=== PATIENT | female | born 1975 | race American Indian/Alaskan Native ===

== ENCOUNTER 2018-03-29 23:04 | Emergency (ER) | payer OTHER ==
[2018-03-30 03:00] LABS: Basophils % (Auto) 0.3 % (0.0-1.8); Eosinophils % (Auto) 0.8 % (0.0-4.3); Hemoglobin 9.8 gm/dl (10.1-14.3); Lymphocytes # (Auto) 1.6 K/mm3 (1.2-5.4); Lymphocytes % (Auto) 36.1 % (13.4-35.0); Mean Corpuscular HGB Conc 32 % (30-34); Mean Corpuscular Volume 75 fl (79-97); Monocytes # (Auto) 0.6 K/mm3 (0.0-0.8); Monocytes % (Auto) 13.4 % (0.0-7.3); Platelet Count 249 K/mm3 (140-440); Red Blood Count 4.13 M/mm3 (3.65-5.03); Red Cell Distribution Width 18.4 % (13.2-15.2)
[2018-03-30 03:07] LABS: Mean Corpuscular Hemoglobin 24 pg (28-32)
[2018-03-30 03:21] LABS: Alanine Aminotransferase 16 units/L (7-56); Albumin 4.3 g/dL (3.9-5); BUN/Creatinine Ratio 20; Blood Urea Nitrogen 14 mg/dL (7-17); Calcium 9.2 mg/dL (8.4-10.2); Hemolysis Index 0
[2018-03-30] MEDS ORDERED: LOVENOX SUB-Q STA (04:08)
[2018-03-30 04:24] VITALS: BP 117/68
--- NOTE | 2018-03-30 04:45 | Emergency Department Report ---
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 She reports pain worsening with ambulation and crampy, throbbing fashion. No chest pain, palpitations, fever, chills, sweats, nausea, vomiting -: Gradual Location: lower extremity Radiation: non-radiation Improves with: immobilization Worsens with: movement Associated Symptoms: denies: chest pain, cough, diaphoresis, fever/chills, loss of appetite, malaise, nausea/vomiting, shortness of breath, syncope, weakness Treatments Prior to Arrival: none - Related Data Allergies Allergy/AdvReac Type Severity Reaction Status Date / Time aspirin Allergy Hives Verified 03/29/18 23:37 ED Review of Systems ROS: Stated complaint: BILATERAL LEG CRAMPS Other details as noted in HPI Constitutional: denies: chills, fever Eyes: denies: eye pain, eye discharge, vision change ENT: denies: ear pain, throat pain Respiratory: denies: cough, shortness of breath, wheezing Cardiovascular: denies: chest pain, palpitations Endocrine: no symptoms reported Gastrointestinal: denies: abdominal pain, nausea, diarrhea Genitourinary: denies: urgency, dysuria, discharge Musculoskeletal: myalgia. denies: back pain, joint swelling, arthralgia Skin: denies: rash, lesions Neurological: denies: headache, weakness, paresthesias Psychiatric: denies: anxiety, depression Hematological/Lymphatic: denies: easy bleeding, easy bruising ED Past Medical Hx - Past Medical History Previous Medical History?: Yes Hx Hypertension: Yes Hx Psychiatric Treatment: Yes (Anxiety) Additional medical history: Anemia - Surgical History Past Surgical History?: Yes Additional Surgical History: rt shoulder - Social History Smoking Status: Never Smoker Substance Use Type: None ED Physical Exam - General Limitations: No Limitations General appearance: alert, in no apparent distress - Head Head exam: Present: atraumatic, normocephalic - Eye Eye exam: Present: normal appearance - ENT ENT exam: Present: mucous membranes moist - Neck Neck exam: Present: normal inspection - Respiratory Respiratory exam: Present: normal lung sounds bilaterally. Absent: respiratory distress - Cardiovascular Cardiovascular Exam: Present: regular rate, normal rhythm. Absent: systolic murmur, diastolic murmur, rubs, gallop - GI/Abdominal GI/Abdominal exam: Present: soft, normal bowel sounds - Extremities Exam Extremities exam: Present: normal inspection, normal capillary refill, calf tenderness (pain to Palpation. No cords time. Homans sign is positive bilaterally. No popliteal masses. No cellulitis or lymphangitis is appreciated ) - Back Exam Back exam: Present: normal inspection - Neurological Exam Neurological exam: Present: alert, oriented X3 - Psychiatric Psychiatric exam: Present: normal affect, normal mood - Skin Skin exam: Present: warm, dry, intact, normal color. Absent: rash ED Course Vital Signs 03/29/18 03/30/18 23:50 04:23 Temperature 99.2 F 98.8 F Pulse Rate 100 H 81 Respiratory 16 18 Rate Blood Pressure 123/78 Blood Pressure 117/68 [Left] O2 Sat by Pulse 99 99 Oximetry ED Medical Decision Making - Lab Data Result diagrams: 03/30/18 02:49 03/30/18 02:49 - Medical Decision Making Elevated d-dimer. Plan to obtain ultrasound tomorrow requisition was provided to the patient. She was also started on Lovenox and will follow-up post results of a bilateral venous Doppler Critical care attestation.: If time is entered above; I have spent that time in minutes in the direct care of this critically ill patient, excluding procedure time. ED Disposition Clinical Impression: Bilateral calf pain Disposition: DC-01 TO HOME OR SELFCARE Is pt being admited?: No Does the pt Need Aspirin: No Condition: Stable Instructions: Deep Venous Thrombosis (ED) Referrals: [facility] [Provider Group] - 03/30/18 8:30 am
== END 2018-03-30 04:23 | disposition home or self-care (01) ==
LOC: ED 23:04
DX: M79.661 Pain in right lower leg (principal); M79.662 Pain in left lower leg; I10 Essential (primary) hypertension; F41.9 Anxiety disorder, unspecified; Z88.6 Allergy status to analgesic agent; Z86.2 Personal history of diseases of the blood and blood-forming organs and certain disorders involving the immune mechanism
CPT/HCPCS: 36415; 80053; 85025; 85379; 96372; J1650; 99283

== ENCOUNTER 2018-10-12 23:33 | Emergency (ER) | payer OTHER ==
[2018-10-13] MEDS ORDERED: NACL 0.9% 1000 ML 1,000 ML IV ONE (00:04)
[2018-10-13] MEDS ORDERED: ZOFRAN IV ONE (00:43)
[2018-10-13] MEDS ORDERED: MORPHINE IV ONE (00:43)
--- NOTE | 2018-10-13 00:59 | Emergency Department Report ---
HPI - General Chief Complaint: Pain General Time Seen by Provider: 10/13/18 00:24 - HPI HPI: 43-year-old -Malagasy female presents to the emergency department with complaint of a one-week history of subjective fever, chills, generalized body aches, diarrhea and some back pain that she says is from her known herniated disks. She went to see her primary care physician a few days ago and was placed on a 3 day course of Cipro and Flagyl, and she was given some Zofran, without any relief. No recent travel or sick contacts at home. She has a past medical history of hypertension, anxiety, anemia and herniated disks. ED Past Medical Hx - Past Medical History Previous Medical History?: Yes Hx Hypertension: Yes Hx Psychiatric Treatment: Yes (Anxiety) Additional medical history: Anemia, Herniated C5, C6 - Surgical History Past Surgical History?: Yes Additional Surgical History: rt shoulder - Social History Smoking Status: Never Smoker Substance Use Type: None - Medications Home Medications: Home Medications Medication Instructions Recorded Confirmed Last Taken Type Ondansetron [Zofran Odt] 4 mg PO Q8HR PRN #15 tab.rapdis 10/13/18 Unknown Rx ED Review of Systems ROS: Stated complaint: FEVER/CHILLS MUSCLE ACHES Other details as noted in HPI Comment: All other systems reviewed and negative Constitutional: chills, fever (subjective) Eyes: denies: eye pain, vision change ENT: denies: ear pain, throat pain Respiratory: denies: cough, shortness of breath Cardiovascular: denies: chest pain, palpitations Gastrointestinal: diarrhea. denies: vomiting Genitourinary: denies: dysuria, discharge Musculoskeletal: back pain, myalgia. denies: joint swelling Skin: denies: rash, lesions Neurological: denies: headache, weakness, numbness Physical Exam - Physical Exam Vital Signs: Vital Signs 10/12/18 23:56 Temperature 99.6 F Pulse Rate 118 H Respiratory 20 Rate Blood Pressure 103/73 O2 Sat by Pulse 99 Oximetry Physical Exam: GENERAL: The patient is well-developed well-nourished. HEENT: Normocephalic. Atraumatic. Patient has moist mucous membranes. EYES: Extraocular motions are intact. Pupils are equal and reactive to light bilaterally. NECK: Supple. Trachea is midline. CHEST/LUNGS: Clear to auscultation. There is no respiratory distress noted. HEART/CARDIOVASCULAR: Regular. There is mild tachycardia. There is no obvious murmur. ABDOMEN: Abdomen is soft, nontender. Patient has hyperactive bowel sounds. There is no abdominal distention. SKIN: Skin is warm and dry. NEURO: The patient is awake, alert, and oriented. The patient is cooperative. The patient has no focal neurologic deficits. The patient has normal speech. MUSCULOSKELETAL: There is no tenderness or deformity. There is no limitation range of motion. There is no evidence of acute injury. ED Course Vital Signs 10/12/18 23:56 Temperature 99.6 F Pulse Rate 118 H Respiratory 20 Rate Blood Pressure 103/73 O2 Sat by Pulse 99 Oximetry ED Medical Decision Making - Lab Data Result diagrams: 10/13/18 00:56 10/13/18 00:56 - Radiology Data Radiology results: image reviewed interpreted by me: Abdominal X-ray shows nonspecific non-obstructive bowel gas. No acute process. - Medical Decision Making Patient presents to the emergency department with a one-week history of some nausea and vomiting, diarrhea, subjective fever with chills and body aches. She has known chronic back pain and herniated disks that she says is also being exacerbated. Patient's labs have been unremarkable including a CBC, CMP, lipase and urinalysis. She was given IV fluid resuscitation, Zofran for nausea and a dose of pain medication. She was reevaluated multiple times almost more hours and is both feeling and appearing improved. Vital signs stable throughout her ED course including being afebrile. The patient was able to pass an oral challenge. Abdominal x-ray showed nonspecific nonobstructive bowel gas. Patient will be discharged home with a prescription for nausea medication. She's been instructed to return to the emergency Department with any worsening of her symptoms or with any acute distress. - Differential Diagnosis food poisoning, viral syndrome, colitis, gastritis Critical Care Time: No Critical care attestation.: If time is entered above; I have spent that time in minutes in the direct care of this critically ill patient, excluding procedure time. ED Disposition Clinical Impression: Viral syndrome Diarrhea Qualifiers: Diarrhea type: unspecified type Qualified Code(s): R19.7 - Diarrhea, unspecified Nausea & vomiting Qualifiers: Vomiting type: unspecified Vomiting Intractability: non-intractable Qualified Code(s): R11.2 - Nausea with vomiting, unspecified Disposition: DC-01 TO HOME OR SELFCARE Is pt being admited?: No Condition: Stable Instructions: Acute Nausea and Vomiting (ED), Acute Diarrhea (ED), Viral Syndrome (ED) Additional Instructions: Please follow up with a primary care physician in the next few days. Increase your oral rehydration. Return to the emergency Department with any worsening of your symptoms or any acute distress. Prescriptions: Ondansetron [Zofran Odt] 4 mg PO Q8HR PRN #15 tab.rapdis PRN Reason: Nausea Referrals: Primary Care Provider, Your [Other] - 2-3 Days Forms: Work/School Release Form(ED) Time of Disposition: 03:35
[2018-10-13 01:30] LABS: Hematocrit 31.9 % (30.3-42.9); Hemoglobin 10.4 gm/dl (10.1-14.3); Mean Corpuscular HGB Conc 33 % (30-34); Mean Corpuscular Volume 78 fl (79-97); Platelet Count 256 K/mm3 (140-440); Red Cell Distribution Width 18.1 % (13.2-15.2)
[2018-10-13 01:35] LABS: Alanine Aminotransferase 31 units/L (7-56); Albumin 3.9 g/dL (3.9-5); BUN/Creatinine Ratio 8; Blood Urea Nitrogen 8 mg/dL (7-17); Calcium 8.6 mg/dL (8.4-10.2); Hemolysis Index 1
--- NOTE | 2018-10-13 02:13 | XRay Report ---
PROCEDURE: XR ABDOMEN 2V TECHNIQUE: Supine and upright views of the abdomen were obtained. HISTORY: abd pain COMPARISONS: None FINDINGS: The bowel gas pattern is unremarkable. Free air is not seen. There are multiple calcifications in the pelvis. The bones and soft tissues do not show any acute changes. IMPRESSION: No acute process identified. This document is electronically signed by Jose Blanco MD., October 13 2018 02:11:27 AM ET
[2018-10-13 03:30] LABS: Bilirubin,Urine NEG (Negative); Blood,Urine SM (Negative); Color,Urine Yellow (Yellow); Hyaline Casts,Urine 13 /LPF; Mucus,Urine 1+ /HPF; Protein,Urine <15 mg/dL mg/dL (Negative); Urobilinogen,Urine < 2.0 mg/dL (<2.0)
[2018-10-13 03:47] VITALS: BP 107/71
[2018-10-13 05:16] LABS: Total Cells Counted 100
[2018-10-13 05:17] LABS: Anisocytosis 1+; Band Neutrophils # (Manual) 0.2 K/mm3; Basophils % (Manual) 0 % (0.0-1.8); Eosinophils % (Manual) 0 % (0.0-4.3)
== END 2018-10-13 03:55 | disposition home or self-care (01) ==
LOC: ED 23:33
DX: B34.9 Viral infection, unspecified (principal); I10 Essential (primary) hypertension; F41.9 Anxiety disorder, unspecified; D64.9 Anemia, unspecified; Z88.6 Allergy status to analgesic agent
CPT/HCPCS: 36415; 74019; 80053; 81001; 83690; 84703; 85007; 85025; 96361; 96374; 96375; 99284; J2270; J2405; J7030

== ENCOUNTER 2020-03-19 08:48 | Emergency (ER) | payer OTHER ==
[2020-03-19 10:30] LABS: Bilirubin,Urine NEG (Negative); Blood,Urine LG (Negative); Color,Urine Yellow (Yellow); Mucus,Urine 1+ /HPF; Protein,Urine <15 mg/dL mg/dL (Negative); Urobilinogen,Urine < 2.0 mg/dL (<2.0)
[2020-03-19] MEDS ORDERED: SODIUM CHLORIDE 0.9% 1000 ML 1,000 ML IV ONE (10:30)
[2020-03-19] MEDS ORDERED: ONDANSETRON 4 MG/2 ML INJ IV ONE (10:30)
[2020-03-19] MEDS ORDERED: HYOSCYAMINE SUBL 0.125 MG TAB SL ONE (10:31)
[2020-03-19 10:41] LABS: HCG Qualitative,Urine Negative (Negative)
[2020-03-19 10:59] LABS: Basophils % (Auto) 0.5 % (0.0-1.8); Eosinophils % (Auto) 0.4 % (0.0-4.3); Hematocrit 33.5 % (30.3-42.9); Hemoglobin 11.1 gm/dl (10.1-14.3); Lymphocytes # (Auto) 0.8 K/mm3 (1.2-5.4); Lymphocytes % (Auto) 15.7 % (13.4-35.0); Mean Corpuscular HGB Conc 33 % (30-34); Mean Corpuscular Volume 85 fl (79-97); Monocytes # (Auto) 0.5 K/mm3 (0.0-0.8); Monocytes % (Auto) 9.4 % (0.0-7.3); Platelet Count 220 K/mm3 (140-440); Red Blood Count 3.96 M/mm3 (3.65-5.03); Red Cell Distribution Width 15.5 % (13.2-15.2)
[2020-03-19 11:08] LABS: Alanine Aminotransferase 9 units/L (7-56); Blood Urea Nitrogen 9 mg/dL (7-17); Calcium 9.2 mg/dL (8.4-10.2); Hemolysis Index 48
[2020-03-19 11:10] LABS: BUN/Creatinine Ratio 15; Bilirubin,Direct < 0.2 mg/dL (0-0.2)
--- NOTE | 2020-03-19 12:43 | Cat Scan Report ---
CT ABDOMEN AND PELVIS WITH CONTRAST HISTORY: Abdominal Pain COMPARISON: None. TECHNIQUE: Axial CT images were obtained through the abdomen and pelvis after 100 cc of Omnipaque 300 intravenously. Sagittal and coronal reformatted images. All CT scans at this location are performed using CT dose reduction for ALARA by means of automated exposure control. FINDINGS: CT ABDOMEN: Lung Bases: Clear. Liver: No significant abnormality. Biliary: No significant abnormality. Spleen: No significant abnormality. Unenlarged. Pancreas: No significant abnormality. Adrenals: No significant abnormality. Kidneys: No significant abnormality. Few scattered small left renal sinus cysts are noted Lymphatics: No lymphadenopathy. Vasculature: No significant abnormality. Bowel/Peritoneum: No significant abnormality. No free air. No free fluid. Normal appendix. CT PELVIS: : 2 or 3 nabothian cysts are noted in the cervix. 1.8 cm right ovarian cyst is identified. The uter us, left adnexa and bladder are unremarkable. There is trace pelvic ascites. Osseous Structures: No significant abnormality. Additional Findings: None IMPRESSION: No acute inflammatory process. 1.8 cm right ovarian cyst. Trace pelvic ascites. Signer Name: Dejuan Banda Jr, MD Signed: 03/19/2020 12:38 PM Workstation Name: [id number]
--- NOTE | 2020-03-19 13:19 | Emergency Department Report ---
ED Abdominal Pain HPI - General Chief Complaint: Abdominal Pain Stated Complaint: CHEST PAIN/THROAT/BODY PAIN Time Seen by Provider: 03/19/20 09:16 Source: patient Mode of arrival: Ambulatory Limitations: No Limitations - History of Present Illness Initial Comments: 45-year-old -[place] female presents emergency department complaining couple day history of abdominal pain radiates from the suprapubic region. No fevers chills or sweats no chest pain or palpitation no nausea vomiting MD Complaint: abdominal pain Location: suprapubic Radiation: none Migration to: suprapubic Quality: stabbing, dull Consistency: constant Improves With: nothing Worsens With: nothing Associated Symptoms: denies: nausea, constipation, dysuria, hematemesis, hematuria, syncope - Related Data Previous Rx's Medication Instructions Recorded Last Taken Type Ondansetron [Zofran Odt] 4 mg PO Q8HR PRN #15 tab.rapdis 10/13/18 Unknown Rx Ketorolac [Toradol] 10 mg PO Q6H PRN #14 tablet 03/19/20 Unknown Rx Allergies Allergy/AdvReac Type Severity Reaction Status Date / Time aspirin Allergy Hives Verified 10/13/18 00:56 ED Review of Systems ROS: Stated complaint: CHEST PAIN/THROAT/BODY PAIN Other details as noted in HPI Comment: All other systems reviewed and negative ED Past Medical Hx - Past Medical History Previous Medical History?: Yes Hx Hypertension: Yes Hx Psychiatric Treatment: Yes (Anxiety) Additional medical history: Anemia, Herniated C5, C6. right ovarian cyst. gastro? - Surgical History Past Surgical History?: Yes Additional Surgical History: rt shoulder - Social History Smoking Status: Never Smoker Substance Use Type: None - Medications Home Medications: Home Medications Medication Instructions Recorded Confirmed Last Taken Type Ondansetron [Zofran Odt] 4 mg PO Q8HR PRN #15 tab.rapdis 10/13/18 Unknown Rx Ketorolac [Toradol] 10 mg PO Q6H PRN #14 tablet 03/19/20 Unknown Rx ED Physical Exam - General Limitations: No Limitations General appearance: alert, in no apparent distress - Head Head exam: Present: atraumatic, normocephalic - Eye Eye exam: Present: normal appearance, PERRL, EOMI Pupils: Present: normal accommodation - ENT ENT exam: Present: normal exam, normal orophraynx, mucous membranes dry, mucous membranes moist - Neck Neck exam: Present: normal inspection, full ROM - Respiratory Respiratory exam: Present: normal lung sounds bilaterally. Absent: respiratory distress, wheezes, accessory muscle use, decreased breath sounds - Cardiovascular Cardiovascular Exam: Present: regular rate, normal rhythm. Absent: systolic murmur, diastolic murmur, rubs, gallop - GI/Abdominal GI/Abdominal exam: Present: soft, tenderness, normal bowel sounds, other (No Rovsing, no Walsh Lang no [place] sign). Absent: guarding, rebound, hypoactive bowel sounds, mass, bruit - Extremities Exam Extremities exam: Present: normal inspection, normal capillary refill - Back Exam Back exam: Present: normal inspection. Absent: CVA tenderness (R), CVA tenderness (L), muscle spasm - Neurological Exam Neurological exam: Present: alert, oriented X3, CN II-XII intact, normal gait - Psychiatric Psychiatric exam: Present: normal affect, normal mood - Skin Skin exam: Present: warm, dry, intact, normal color. Absent: rash ED Course Vital Signs 03/19/20 08:49 Temperature 99 F Pulse Rate 107 H Respiratory 18 Rate Blood Pressure 128/87 O2 Sat by Pulse 98 Oximetry ED Medical Decision Making - Lab Data Result diagrams: 03/19/20 10:45 03/19/20 10:45 - Radiology Data Radiology results: report reviewed Report Referring Physician:JOVI WHITTENPatient Name:HALLE MCKEONPatient ID:[id number] of :[id number]:FemaleAccession:[id number] Date:[id number] Status:Finalized Findings [address] [address] Cat Scan Report Signed Patient: HALLE MCKEON MR#: [id number] : 1975 Acct:[id number] Age/Sex: 45 / F ADM Date: 03/19/20 Loc: ED Attending Dr: Ordering Physician: SOLO KERR Date of Service: 03/19/20 Procedure(s): CT abdomen pelvis w con Accession Number(s): [id number] cc: SOLO KERR CT ABDOMEN AND PELVIS WITH CONTRAST HISTORY: Abdominal Pain COMPARISON: None. TECHNIQUE: Axial CT images were obtained through the abdomen and pelvis after 100 cc of Omnipaque 300 intravenously. Sagittal and coronal reformatted images. All CT scans at this location are perfo rmed using CT dose reduction for ALARA by means of automated exposure control. FINDINGS: CT ABDOMEN: Lung Bases: Clear. Liver: No significant abnormality. Biliary: No significant abnormality. Spleen: No significant abnormality. Unenlarged. Pancreas: No significant abnormality. Adrenals: No significant abnormality. Kidneys: No significant abnormality. Few scattered small left renal sinus cysts are noted Lymphatics: No lymphadenopathy. Vasculature: No significant abnormality. Bowel/Peritoneum: No significant abnormality. No free air. No free fluid. Normal appendix. CT PELVIS: : 2 or 3 nabothian cysts are noted in the cervix. 1.8 cm right ovarian cyst is identified. The uterus, left adnexa and bladder are unremarkable. There is trace pelvic ascites. Osseous Structures: No significant abnormality. Additional Findings: None IMPRESSION: No acute inflammatory process. 1.8 cm right ovarian cyst. Trace pelvic ascites. Signer Name: Dejuan Banda Jr, MD Signed: 03/19/2020 12:38 PM Workstation Name: [id number] Transcribed By: TTR Dictated By: DEJUAN BANDA JR, MD Electronically Authenticated By: DEJUAN BANDA JR, MD Signed Date/Time: 03/19/20 1238 DD/ 1235 TD/TT: - Medical Decision Making This patient presents with abdominal pain of unclear etiology possibly related to an ovarian cyst. A CT scan was performed to evaluate for potential causes of the abdominal pain, however, neither the clinical exam nor the CT has identified an emergent etiology for the abdominal pain. Specifically, given the benign exam, the laboratory studies, and unremarkable CT, I have a very low suspicion for appendicitis, ischemic bowel, bowel perforation, or any other life threatening disease. I have discussed with the patient the level of uncertainty with undifferentiated abdominal pain and clearly explained the need to follow-up as noted on the discharge instructions, or return to the Emergency Department immediately if the pain worsens, develops fever, persistent and uncontrollable vomiting, or for any new symptoms or concerns. Critical care attestation.: If time is entered above; I have spent that time in minutes in the direct care of this critically ill patient, excluding procedure time. ED Disposition Clinical Impression: Abdominal pain, Ovarian cyst Disposition: TO HOME OR SELFCARE Is pt being admited?: No Does the pt Need Aspirin: No Condition: Stable Instructions: Abdominal Pain (ED), Ovarian Cyst (ED) Prescriptions: Ketorolac [Toradol] 10 mg PO Q6H PRN #14 tablet PRN Reason: Pain Referrals: [facility] [Other] - 3-5 Days
[2020-03-19] MEDS ORDERED: KETOROLAC 30 MG/1 ML INJ ONE (13:38)
[2020-03-19] MEDS ORDERED: KETOROLAC 30 MG/1 ML INJ IV STA (13:41)
[2020-03-19 18:08] VITALS: BP 112/67
== END 2020-03-19 14:20 | disposition home or self-care (01) ==
LOC: ED 08:48
DX: N83.209 Unspecified ovarian cyst, unspecified side (principal); R10.2 Pelvic and perineal pain; I10 Essential (primary) hypertension; F41.9 Anxiety disorder, unspecified; Z98.890 Other specified postprocedural states; Z79.899 Other long term (current) drug therapy; Z88.6 Allergy status to analgesic agent
CPT/HCPCS: 36415; 74177; 80048; 80076; 81001; 81025; 83690; 85025; 93005; 96361; 96374; 96375; 99284; J1885; J2405; J7030; Q9967

== ENCOUNTER 2020-06-03 12:06 | Emergency (ER) | payer OTHER ==
--- NOTE | 2020-06-03 13:00 | XRay Report ---
CHEST 2 VIEWS INDICATION / CLINICAL INFORMATION: Chest Pain. COMPARISON: None available. FINDINGS: SUPPORT DEVICES: None. HEART / MEDIASTINUM: No significant abnormality. LUNGS / PLEURA: No significant pulmonary or pleural abnormality. No pneumothorax. ADDITIONAL FINDINGS: No significant additional findings. IMPRESSION: 1. No acute findings. Signer Name: Anjel Emmanuel MD Signed: 06/03/2020 12:54 PM Workstation Name: [id number]
[2020-06-03 13:25] LABS: Basophils % (Auto) 0.4 % (0.0-1.8); Eosinophils % (Auto) 1.4 % (0.0-4.3); Hematocrit 35.6 % (30.3-42.9); Hemoglobin 11.6 gm/dl (10.1-14.3); Mean Corpuscular HGB Conc 32 % (30-34); Mean Corpuscular Volume 80 fl (79-97); Monocytes # (Auto) 0.3 K/mm3 (0.0-0.8); Monocytes % (Auto) 11.4 % (0.0-7.3); Platelet Count 220 K/mm3 (140-440); Red Blood Count 4.46 M/mm3 (3.65-5.03); Red Cell Distribution Width 16.1 % (13.2-15.2)
[2020-06-03 13:37] LABS: Blood Urea Nitrogen 10 mg/dL (7-17); Calcium 9.6 mg/dL (8.4-10.2); Hemolysis Index 0
[2020-06-03 13:49] LABS: BUN/Creatinine Ratio 14
[2020-06-03] MEDS ORDERED: HYDROcodone/ACETAMINOPHEN 5-325 MG TAB PO ONE (19:29)
--- NOTE | 2020-06-03 19:32 | Emergency Department Report ---
ED General Adult HPI - General Chief complaint: Chest Pain Stated complaint: POSS COVID EXPOSURE PUI?: No Time Seen by Provider: 06/03/20 18:44 Source: patient Mode of arrival: Ambulatory Limitations: No Limitations - History of Present Illness Initial comments: Chief complaint: "I have all the symptoms of Covid 19." HPI: This is a 55-year-old female with history of hypertension, anxiety, anemia, cervical disc herniation, shoulder arthritis, ovarian cyst who presents with headache body aches cough sputum production chest pain since Monday 4 days ago. She was diagnosed with acute bronchitis after PCP evaluation on Monday. She was prescribed azithromycin and promethazine. She has persistent chest pain pressure radiating to the back exacerbated by cough. Subjective fever. Chills. She also has nausea vomiting diarrhea. She has had frequent contact with other people possible Covid exposure -: Gradual, days(s) (4) Location: head, chest Severity scale (0 -10): 5 Quality: aching Consistency: constant Improves with: none Worsens with: other (Cough) Associated Symptoms: cough, other (Sputum production body aches) - Related Data Previous Rx's Medication Instructions Recorded Last Taken Type Ondansetron [Zofran Odt] 4 mg PO Q8HR PRN #15 tab.rapdis 10/13/18 Unknown Rx Ketorolac [Toradol] 10 mg PO Q6H PRN #14 tablet 03/19/20 Unknown Rx HYDROcodone/APAP 5-325 [Renner 1 each PO Q6HR PRN #10 tablet 06/04/20 Unknown Rx 5/325] Allergies Allergy/AdvReac Type Severity Reaction Status Date / Time aspirin Allergy Hives Verified 10/13/18 00:56 ED Review of Systems ROS: Stated complaint: POSS COVID EXPOSURE Other details as noted in HPI Comment: All other systems reviewed and negative Constitutional: chills, fever, malaise Respiratory: cough Cardiovascular: chest pain Gastrointestinal: diarrhea ED Past Medical Hx - Past Medical History Previous Medical History?: Yes Hx Hypertension: Yes Hx Psychiatric Treatment: Yes (Anxiety) Additional medical history: Anemia, Herniated C5, C6. right ovarian cyst. dixie ro? - Surgical History Past Surgical History?: Yes Additional Surgical History: rt shoulder - Social History Smoking Status: Never Smoker Substance Use Type: None - Medications Home Medications: Home Medications Medication Instructions Recorded Confirmed Last Taken Type Ondansetron [Zofran Odt] 4 mg PO Q8HR PRN #15 tab.rapdis 10/13/18 Unknown Rx Ketorolac [Toradol] 10 mg PO Q6H PRN #14 tablet 03/19/20 Unknown Rx HYDROcodone/APAP 5-325 [Renner 1 each PO Q6HR PRN #10 tablet 06/04/20 Unknown Rx 5/325] ED Physical Exam - General Limitations: No Limitations General appearance: alert, in no apparent distress - Head Head exam: Present: atraumatic, normocephalic - Eye Eye exam: Present: normal appearance - ENT ENT exam: Present: mucous membranes moist - Neck Neck exam: Present: normal inspection, full ROM - Respiratory Respiratory exam: Present: normal lung sounds bilaterally. Absent: respiratory distress, wheezes, rales, rhonchi - Cardiovascular Cardiovascular Exam: Present: regular rate, normal rhythm, normal heart sounds. Absent: systolic murmur, diastolic murmur, rubs, gallop - GI/Abdominal GI/Abdominal exam: Present: soft, normal bowel sounds. Absent: distended, tenderness, guarding, rebound - Extremities Exam Extremities exam: Present: normal inspection - Neurological Exam Neurological exam: Present: alert, oriented X3 - Psychiatric Psychiatric exam: Present: normal affect, normal mood - Skin Skin exam: Present: warm, dry, intact, normal color. Absent: rash ED Course Vital Signs 06/03/20 06/03/20 06/03/20 12:16 18:36 18:52 Temperature 98.4 F 99.3 F 99.2 F Pulse Rate 142 H 95 H Respiratory 18 18 12 Rate Blood Pressure 117/91 106/77 Blood Pressure 104/82 [Left] O2 Sat by Pulse 96 98 99 Oximetry 06/03/20 06/03/20 06/03/20 19:00 19:30 20:00 Temperature Pulse Rate 93 H 90 85 Respiratory 11 L 10 L 12 Rate Blood Pressure 115/81 117/79 123/76 Blood Pressure [Left] O2 Sat by Pulse 98 Oximetry 06/03/20 06/03/20 06/03/20 20:30 21:00 21:30 Temperature Pulse Rate 80 80 77 Respiratory 14 19 13 Rate Blood Pressure 108/66 123/81 110/75 Blood Pressure [Left] O2 Sat by Pulse 98 97 Oximetry 12/16/20 22:00 Temperature Pulse Rate 73 Respiratory 13 Rate Blood Pressure 117/75 Blood Pressure [Left] O2 Sat by Pulse 98 Oximetry ED Medical Decision Making - Lab Data Result diagrams: 06/03/20 13:00 06/03/20 13:00 Laboratory Results - last 24 hr 06/03/20 06/03/20 06/03/20 13:00 13:00 17:19 WBC 2.5 L RBC 4.46 Hgb 11.6 Hct 35.6 MCV 80 MCH 26 L MCHC 32 RDW 16.1 H Plt Count 220 Lymph % (Auto) 41.0 H [place] % (Auto) 11.4 H Eos % (Auto) 1.4 Baso % (Auto) 0.4 Lymph # (Auto) 1.0 L [place] # (Auto) 0.3 Eos # (Auto) 0.0 Baso # (Auto) 0.0 Seg Neutrophils % 45.8 Seg Neutrophils # 1.2 L Sodium 135 L Potassium 4.1 Chloride 100.8 Carbon Dioxide 27 Anion Gap 11 BUN 10 Creatinine 0.7 Estimated GFR > 60 BUN/Creatinine Ratio 14 Glucose 85 Calcium 9.6 Troponin T < 0.010 < 0.010 - EKG Data EKG shows normal: sinus rhythm, axis, intervals, QRS complexes, ST-T waves Rate: tachycardia - EKG Data 06/03/20 19:30 EKG obtained 1219 Sinus tachycardia rate 120 bpm normal axis normal intervals no ST-T signs ischemia no ST elevation - Radiology Data Radiology results: report reviewed Chest radiograph: No acute findings according radiology impression - Medical Decision Making Constellation symptoms indicative of viral syndrome. Possible COVID-19 infection. Lymphopenia leukopenia seen on CBC. Patient diagnosed with acute bronchitis by PCP. Patient did have significant tachycardia initially upon arrival. On my exam and on personnel monitor current heart rate 89 bpm. Patient is highly anxious and upset. Due to tachycardia and pleuritic type chest pain D-dimer was obtained. Chest pain atypical for ACS. Patient has persistent chest pain at rest exacerbated with cough. With significant tachycardia D-dimer obtained. D-dimer was elevated. With possible COVID-19 infection, patient is at risk for VTE p CT angio chest no evidence of pulmonary embolism, left lung revealed small airways infection or inflammation Patient has COVID-19 test result pending per PCP. She is being treated for atypical pneumonia or bronchitis with azithromycin. I strongly encourage self quarantine self isolation. Critical care attestation.: If time is entered above; I have spent that time in minutes in the direct care of this critically ill patient, excluding procedure time. ED Disposition Clinical Impression: Suspected COVID-19 virus infection, Acute bronchitis Disposition: TO HOME OR SELFCARE Is pt being admited?: No Does the pt Need Aspirin: No Condition: Stable Instructions: Acute Bronchitis (ED) Additional Instructions: Please self isolate self quarantine until you receive a negative COVID-19 test. Prescriptions: HYDROcodone/APAP 5-325 [Renner 5/325] 1 each PO Q6HR PRN #10 tablet PRN Reason: Pain Referrals: SULAIMAN YODER,SHIRLEY [Other] - 3-5 Days
--- NOTE | 2020-06-03 23:08 | Cat Scan Report ---
CTA CHEST WITH CONTRAST INDICATION / CLINICAL INFORMATION: Chest pain tachycardia elevated D-dimer. TECHNIQUE: Axial CT images were obtained through the chest after injection of 100 cc Omni 350 IV cont rast. 3 plane MIP and/or 3D reconstructions were produced. All CT scans at this location are performe d using CT dose reduction for ALARA by means of automated exposure control. COMPARISON: Chest radiograph 06/03/2020; CT abdomen pelvis March 19, 2020 FINDINGS: PULMONARY ARTERIES: No pulmonary emboli. THORACIC AORTA: No significant abnormality. HEART: No significant abnormality. CORONARY ARTERY CALCIFICATION: None. MEDIASTINUM / MAGGY: No significant abnormality. PLEURA: No pleural effusion. No pneumothorax. LUNGS: Few small areas of tree-in-bud micronodular to the in the left lung likely representing small airways infection or inflammation. No focal consolidation or interstitial lung disease. ADDITIONAL FINDINGS: None. 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 This is likely due to compression from the median arcuate ligament. SKELETAL STRUCTURES: No significant osseous abnormality. IMPRESSION: 1. No CT evidence for pulmonary embolism. 2. Few small areas of tree-in-bud micronodular disease in the left lung likely representing small air ways infection or inflammation. 3. 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 Signer Name: Jose Ji MD Signed: 06/03/2020 11:04 PM Workstation Name: [id number]
[2020-06-04 00:20] VITALS: BP 115/75
== END 2020-06-04 00:20 | disposition home or self-care (01) ==
LOC: ED 12:06
DX: J20.9 Acute bronchitis, unspecified (principal); I10 Essential (primary) hypertension; F41.9 Anxiety disorder, unspecified; Z79.899 Other long term (current) drug therapy; Z88.6 Allergy status to analgesic agent; Z20.828 Contact with and (suspected) exposure to other viral communicable diseases
CPT/HCPCS: 36415; 71046; 71275; 80048; 84484; 85025; 85379; 93005; 99284; Q9967

== ENCOUNTER 2020-06-06 12:12 | Emergency (ER) | payer OTHER ==
[2020-06-06 12:44] VITALS: BP 107/76
== END 2020-06-06 22:00 | disposition left against medical advice (07) ==
LOC: ED 12:12
DX: R06.02 Shortness of breath (principal); Z53.21 Procedure and treatment not carried out due to patient leaving prior to being seen by health care provider